=== PATIENT | female | born 1985 | race Caucasian/White ===

== ENCOUNTER 2019-10-25 03:45 | Emergency (ER) | payer OTHER, MEDICAID, SELFPAY ==
[2019-10-25 03:51] VITALS: BP 145/98; PULSE 92; RESP 16; TEMP 36.7; O2SAT 100; BMI 27.6
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
[2019-10-25] MEDS: LIDOCAINE 1% (PF) 4 ML INJ (04:12)
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
== END 2019-10-25 04:35 | disposition home or self-care (01) ==
PROVIDERS: Emergency Provider Emergency Medicine; Family Provider Family Medicine
DX: M25.062 Hemarthrosis, left knee (principal)
CPT/HCPCS: 20610; 99283